=== PATIENT | female | born 1945 | race African-American/Black ===

== ENCOUNTER 2021-07-21 13:45 | Outpatient (CLI) | payer MEDICARE | END 2021-07-21 13:46 | disposition home or self-care (01) | LOC: CSHCT 13:45 | PROVIDERS: ATTEND Family Medicine | DX: Z12.2 Encounter for screening for malignant neoplasm of respiratory organs (principal); F17.210 Nicotine dependence, cigarettes, uncomplicated; R91.8 Other nonspecific abnormal finding of lung field | CPT/HCPCS: 71271 ==

== ENCOUNTER 2021-08-02 12:59 | Outpatient (CLI) | payer MEDICARE | END 2021-08-02 13:00 | disposition home or self-care (01) | LOC: CSHCT 12:59 | PROVIDERS: ATTEND Student in an Organized Health Care Education/Training Program | DX: H90.5 Unspecified sensorineural hearing loss (principal); H74.39 Other acquired abnormalities of ear ossicles; H83.8X1 Other specified diseases of right inner ear | CPT/HCPCS: 70480 ==

== ENCOUNTER 2023-12-05 13:42 | Outpatient (CLI) | payer OTHER | END 2023-12-05 13:43 | disposition home or self-care (01) | LOC: CSHCP 13:42 | PROVIDERS: ATTEND Internal Medicine Critical Care Medicine | DX: J44.9 Chronic obstructive pulmonary disease, unspecified (principal) | CPT/HCPCS: 94060; 94726; 94729; 94760 ==